=== PATIENT | female | born 1955 | race Caucasian/White ===

== ENCOUNTER 2023-02-23 21:59 | Emergency (ER) | payer MEDICARE, SELFPAY ==
--- NOTE | ~2023-02-23 | CT_ITS ---
EXAMINATION: CT abdomen pelvis wo con DATE: 02/24/2023 01:34 INDICATION: Lower abdominal pain/discomfort. Abdominal distention. Constipation. Urinary retention. TECHNIQUE: Computed tomography (CT) of the abdomen and pelvis was performed without intravenous contr ast. Automated exposure control and iterative reconstruction technique were employed. Exam dose: 102 2.92 mGy-cm total exam DLP. COMPARISON: None. FINDINGS: Emphysematous changes are noted in the lower lung zones. Peripheral interlobular septal sof t tissue thickening of some honeycombing or bronchiectasis may indicate usual interstitial pneumonia interstitial fibrosis. Normal heart size. Coronary artery calcifications. No pericardial or pleural effusion. Small sliding hiatal hernia. The gallbladder is present. No bile duct or pancreatic duct dilatation. No hepatic, pancreatic, splenic space-occupying mass lesion. Left adrenal hypertrophy versus small adenoma. Right adrenal gland is unremarkable. No renal mass lesion or urinary tract calculus or hydroureteronephrosis is detected. Urinary bladder is relatively evacuated, appearing essentially unremarkable. The uterus and adnexal areas are unremar kable. There is atherosclerotic calcification of the abdominal aorta but normal caliber, without aneurysm. T here is prominent calcification at the origins of the renal arteries. No intraperitoneal or retroperitoneal or pelvic mass lesion or adenopathy or ascites is detected. Normal appendix. Diverticulosis of the left colon; no CT evidence of diverticulitis. As a prominent o f fecal material in the colon. No bowel obstruction, bowel wall thickening, pneumatosis or intraperit valiente free air is detected. Small fat-containing umbilical hernia. Subacute or old anterolateral right sixth rib fracture. Multilevel degenerative disc disease of lumbar spine, severe at L4-5 and L5-S1. There is degenerative change at the apophyseal joints as well, with grade 1 anterolisthesis at L4-5. No suspicious osteolytic or osteoblastic lesions are noted. IMPRESSION: Normal appendix Diverticulosis of left colon; no evidence of diverticulitis Left adrenal hypertrophy versus small adenoma Small sliding hiatal hernia Reviewed, dictated and finalized at [facility]. Reviewed, dictated and finalized at [facility].
[2023-02-23 22:07] VITALS: BP 151/109; PULSE 103; RESP 16; TEMP 36.4; O2SAT 97
--- NOTE | 2023-02-23 23:48 | ED.FEMALEGU ---
HPI - Female Genitourinary General Chief complaint: Urogenital-Female Stated complaint: unable to urinate x2 days Time Seen by Provider: 02/23/23 23:32 Source: patient Mode of arrival: ambulatory Limitations: no limitations History of Present Illness HPI Narrative: This is a 68-year-old female with PMH of CKD, diabetes, thyroid disease who presents to the ED with chief complaint of urinary retention x2 days. She states that she feels the urge but is unable to go. Reports a lot of abdominal distention as well. Reports mild discomfort but no abdominal pain. Reports constipation with last bowel movement 5 days ago. States the last time she passed gas was 3 days ago. Denies any nausea or vomiting. Denies fevers, chills, chest pain, shortness of breath, cough. Denies any abdominal surgical history. Patient is in town visiting family, she is originally from [place] so we do not have any records for comparison regarding labs or imaging. Review of Systems Review of Systems: CONSTITUTIONAL: Denies fever, chills, or sweats. EYES: Denies visual changes, redness, or discharge. ENT: Denies rhinorrhea, congestion, sore throat, or otalgia. CARDIOVASCULAR: Denies chest pain, palpitations, or edema. RESPIRATORY: Denies cough or dyspnea. GASTROINTESTINAL: See HPI GENITOURINARY: Denies dysuria or hematuria. SKIN: Denies rash or itching. MUSCULOSKELETAL: Denies back pain, joint pain, or myalgia. NEUROLOGIC: Denies headache, numbness, dizziness, or weakness. PSYCHIATRIC: Denies anxiety or depression. Exam Narrative: GENERAL: Well-appearing, well-nourished, and in no acute distress. HEAD: Normocephalic, atraumatic. EYES: PERRLA and EOMI. ENT: Nares clear, no rhinorrhea or epistaxis. Mucous membranes moist. Oropharynx without tonsillar hypertrophy exudate or other lesions. NECK: Supple. No adenopathy or masses. CHEST: No respiratory distress. Clear to auscultation. No wheezes rales or rhonchi HEART: Regular rate and rhythm. No murmur heard. Normal peripheral pulses. ABDOMEN: Mild abdominal distention present. Tenderness in the left lower quadrant. Soft, hypoactive active bowel sounds. No guarding or rigidity. MSK: Normal range of motion. No edema. SKIN: Warm, dry, no rash. NEURO: Alert and oriented x3. No focal deficits. PSYCH: Normal mood and affect. Course Vital Signs Vital signs: Vital Signs Temperature 97.6 F 02/23/23 22:07 Pulse Rate 103 H 02/23/23 22:07 Respiratory Rate 16 02/23/23 22:07 Blood Pressure 151/109 H 02/23/23 22:07 Pulse Oximetry 97 02/23/23 22:07 Oxygen Delivery Room Air 02/23/23 22:07 Temperature 97.6 F 02/23/23 22:07 Pulse Rate 103 H 02/23/23 22:07 Respiratory Rate 16 02/23/23 22:07 Blood Pressure 151/109 H 02/23/23 22:07 Pulse Oximetry 97 02/23/23 22:07 Oxygen Delivery Room Air 02/23/23 22:07 MDM - Female Genitourinary MDM Narrative Medical decision making narrative: This is a 68-year-old female who presents to the ED with chief complaint of urinary retention and constipation. Vitals show initial slight tachycardia at 103 and slight elevated blood pressures. Exam reveals a mildly distended abdomen with focal left lower quadrant tenderness. Lab work reveals leukocytosis at 19.3 with elevated absolute neutrophil count at 13.8. CMP shows BUN 59 and creatinine 2.50. She is known to have CKD but I do not have any previous measures to compare. UA is unremarkable. Fluids given. Patient is resting comfortably and not requiring any pain meds. There is no vomiting. She will be handed off to attending Dr. Finley pending CT results. Differential includes bowel obstruction, obstructive uropathy, diverticulitis, abdominal abscess, colitis, constipation. Lab Data 02/24/23 00:38 02/24/23 00:38 Labs: Lab Results 02/24/23 02/24/23 Range/Units 00:38 00:58 WBC 19.1 H (4.5-10.0) K/mm3 RBC 4.22 (4.2-5.4) M/mm3 Hgb 14.4 (12.
[2023-02-24] MEDS: SODIUM CHLORIDE 0.9% IV 1,000 ML 999 ML IV CONT (00:37)
[2023-02-24 00:50] LABS: Basophils Absolute Auto 0.1 K/mm3 (0.0-0.1); Basophils Percent Auto 0.3 % (0.2-1.2); Eosinophils Absolute Auto 0.1 K/mm3 (0-0.3); Eosinophils Percent Auto 0.3 % (0-4.4); Hematocrit 43.6 % (37.0-47.0); Hemoglobin 14.4 g/dL (12.0-15.0); Immature Granulocyte Absolute 0.28 K/mm3 (0.00-0.031); Immature Granulocyte Percent A 1.5 % (0-0.5); Lymphocytes Percent Auto 17.8 % (18.3-44.2); Mean Corpuscular Hemoglobin 34.1 pg (26-34); Mean Corpuscular Volume 103.3 fl (80-100); Mean Platelet Volume 10.2 fl (7.4-10.4); Monocytes Absolute Auto 1.5 K/mm3 (0.1-0.6); Monocytes Percent Auto 7.8 % (2.6-8.5); Neutrophils Absolute Auto 13.8 K/mm3 (1.3-6.7); Neutrophils Percent Auto 72.3 % (45.5-73.1); Platelet Count Result 352 k/mm3 (150-375); Red Blood Count 4.22 M/mm3 (4.2-5.4); Red Cell Distribution Width 15.1 % (11.5-14.5); White Blood Count 19.1 K/mm3 (4.5-10.0)
[2023-02-24 01:10] LABS: Alanine Aminotransferase 25 U/L (6-35); Alkaline Phosphatase 124 U/L (38-126); Anion Gap 13 mmol/L (8-16); Aspartate Amino Transferase 25 U/L (14-36); Bilirubin,Total 0.4 mg/dL (0.2-1.3); Blood Urea Nitrogen 59 mg/dL (7-17); Calcium 8.8 mg/dL (8.4-10.2); Carbon Dioxide 26 mmol/L (22-30); Chloride 99 mmol/L (98-107); Estimated CRCL calculation 21 ml/min; Estimated Glomerular Filt Rate 19; Glucose 120 mg/dL (65-110); Potassium 3.6 mmol/L (3.4-5.0); Sodium 138 mmol/L (137-145)
[2023-02-24 01:26] LABS: Appearance Urine Clear (Clear); Bacteria Urine None Seen /hpf; Bilirubin Urine Negative (Negative); Blood Urine Negative (Negative); Color Urine Yellow (Yellow); Glucose Urine UA Negative (Negative); Ketones Urine Negative (Negative); Leukocyte Esterase Ur Negative LEU/UL (Negative); Need Manual Microscopic Reviewed; Nitrate Urine Negative (Negative); Non Pathogenic Casts >20; Protein Urine 1+ mg/dL (Negative); RBC Urine 0-2 /hpf (0-2); Specific Grav Ur 1.021 (1.001-1.035); Squamous Epithelial Cell Urine None seen /hpf (Few); Urobilinogen Urine 0.2 mg/dL (<2.0); WBC Urine 0-5 /hpf
[2023-02-24 01:28] LABS: Add Urine Microscopic? YES
[2023-02-24 07:22] VITALS: BP 121/83; PULSE 96; RESP 18; O2SAT 98
--- NOTE | 2023-02-24 08:33 | PC.NURSE ---
Pt able to urinate without difficulty.
[2023-02-24 08:45] VITALS: BP 130/79; PULSE 82; RESP 20; O2SAT 99
== END 2023-02-24 08:47 | disposition home or self-care (01) ==
PROVIDERS: Emergency Medicine; Emergency Provider Physician Assistant
DX: K59.00 Constipation, unspecified (principal); E86.0 Dehydration; E11.22 Type 2 diabetes mellitus with diabetic chronic kidney disease; N18.9 Chronic kidney disease, unspecified
CPT/HCPCS: 36415; 74176; 80053; 81001; 85025; 96360; 99284; J7030